=== PATIENT | male | born 1980 | race American Indian/Alaskan Native ===

== ENCOUNTER 2020-10-14 04:37 | Emergency (ER) | payer SELFPAY ==
[2020-10-14 04:54] VITALS: BP 137/84
--- NOTE | 2020-10-14 05:44 | Emergency Department Report ---
ED ENT HPI - General Chief complaint: Dental/Oral Stated complaint: DENTAL PAIN Time Seen by Provider: 10/14/20 05:23 Source: patient Mode of arrival: Ambulatory Limitations: No Limitations - History of Present Illness Initial comments: 40-year-old [place] male presents emerge department complaining of severe pain to his right upper molar region which started yesterday. Reports having this pain in the past but it reemerged while he was eating some Doritos and thinks he may have bit at the chip awkwardly which exacerbated the pain. Having dull thr obbing worse with palpation and eating since that time fell no fever, chills, sweats. No palpitation or is no neck pain. Location: tooth # (2) Severity: moderate, severe Quality: aching, dull Consistency: constant Improves with: none Worsens with: none Associated Symptoms: toothache. denies: pain with swallowing - Related Data Previous Rx's Medication Instructions Recorded Last Taken Type Amoxicillin [Amoxicillin TAB] 875 mg PO BID #20 tablet 10/14/20 Unknown Rx Ketorolac [Toradol] 10 mg PO Q6H PRN #15 tablet 10/14/20 Unknown Rx Lidocaine Viscous 2% 5 ml MM Q3H PRN #120 udc 10/14/20 Unknown Rx ED Dental HPI - General Chief complaint: Dental/Oral Stated complaint: DENTAL PAIN Time Seen by Provider: 10/14/20 05:23 Source: patient Mode of arrival: Ambulatory Limitations: No Limitations - Related Data Previous Rx's Medication Instructions Recorded Last Taken Type Amoxicillin [Amoxicillin TAB] 875 mg PO BID #20 tablet 10/14/20 Unknown Rx Ketorolac [Toradol] 10 mg PO Q6H PRN #15 tablet 10/14/20 Unknown Rx Lidocaine Viscous 2% 5 ml MM Q3H PRN #120 udc 10/14/20 Unknown Rx ED Review of Systems ROS: Stated complaint: DENTAL PAIN Other details as noted in HPI Comment: All other systems reviewed and negative ED Past Medical Hx - Past Medical History Previous Medical History?: No - Surgical History Past Surgical History?: No - Social History Smoking Status: Never Smoker Substance Use Type: None - Medications Home Medications: Home Medications Medication Instructions Recorded Confirmed Last Taken Type Amoxicillin [Amoxicillin TAB] 875 mg PO BID #20 tablet 10/14/20 Unknown Rx Ketorolac [Toradol] 10 mg PO Q6H PRN #15 tablet 10/14/20 Unknown Rx Lidocaine Viscous 2% 5 ml MM Q3H PRN #120 udc 10/14/20 Unknown Rx ED Physical Exam - General Limitations: No Limitations General appearance: alert, in no apparent distress - Head Head exam: Present: atraumatic, normocephalic - Eye Eye exam: Present: normal appearance - ENT ENT exam: Present: mucous membranes moist, other (Dental caries noted throughout dentition with pain around tooth #2 his filling appears to be still in place there is minimal adjacent erythema but no abscess is appreciated tongue uvula midline airway patent) - Neck Neck exam: Present: normal inspection - Respiratory Respiratory exam: Present: normal lung sounds bilaterally. Absent: respiratory distress - Cardiovascular Cardiovascular Exam: Present: regular rate, normal rhythm. Absent: systolic murmur, diastolic murmur, rubs, gallop - GI/Abdominal GI/Abdominal exam: Present: soft, normal bowel sounds - Rectal Rectal exam: Present: deferred - Extremities Exam Extremities exam: Present: normal inspection - Back Exam Back exam: Present: normal inspection - Neurological Exam Neurological exam: Present: alert, oriented X3 - Psychiatric Psychiatric exam: Present: normal affect, normal mood - Skin Skin exam: Present: warm, dry, intact, normal color. Absent: rash ED Course Vital Signs 10/14/20 04:45 Temperature 98.3 F Pulse Rate 80 Respiratory 16 Rate Blood Pressure 137/84 O2 Sat by Pulse 100 Oximetry Critical care attestation.: If time is entered above; I have spent that time in minutes in the direct care of this critically ill patient, excluding procedure time. ED Disposition Clinical Impression: Dentalgia Disposition: TO HOME OR SELFCARE Is pt being admited?: No Does the pt Need Aspirin: No Instructions: Dental Sealants, Tooth Injuries, Dental Caries, Pediatric, Preventive Dental Care, Adult Prescriptions: Amoxicillin [Amoxicillin TAB] 875 mg PO BID #20 tablet Lidocaine Viscous 2% 5 ml MM Q3H PRN #120 udc PRN Reason: Pain, Moderate (4-6) Ketorolac [Toradol] 10 mg PO Q6H PRN #15 tablet PRN Reason: Pain Referrals: PRIMARY CARE,MD [Primary Care Provider] - 3-5 Days [facility] [Outside] - 3-5 Days
== END 2020-10-14 06:04 | disposition home or self-care (01) ==
LOC: ED 04:37
DX: K08.89 Other specified disorders of teeth and supporting structures (principal); Z79.899 Other long term (current) drug therapy
CPT/HCPCS: 99282